=== PATIENT | male | born 1980 | race Caucasian/White ===

== ENCOUNTER 2017-10-13 22:44 | Emergency (ER) | payer OTHER ==
--- NOTE | 2017-10-13 23:32 | RAD ---
PA AND LATERAL CHEST X-RAY 10/13/17 HISTORY: Cough and mid sternal tightness/chest pain. COMPARISON: None available. FINDINGS: The cardiac silhouette and pulmonary vasculature are within normal limits. There is prominence in the left hilar region, but this is most likely related to vascular structures. The lungs are clear. Osse ous structures are intact. IMPRESSION: No acute cardiopulmonary process. POS: [facility]
== END 2017-10-13 23:21 | disposition home or self-care (01) ==
LOC: SCSER 22:44
DX: R07.81 Pleurodynia (principal); R05 Cough; F41.9 Anxiety disorder, unspecified; F32.9 Major depressive disorder, single episode, unspecified
CPT/HCPCS: 71046; 93005